=== PATIENT | female | born 1995 | race Caucasian/White ===

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

== ENCOUNTER 2017-03-05 11:03 | Emergency (ER) | payer OTHER ==
[2017-03-05 11:29] VITALS: BP 125/78; TEMP 98.3; BMI 35.3
--- NOTE | 2017-03-05 11:43 | PDOC ---
History of Present Illness - General Chief Complaint: Cold Symptoms Stated Complaint: CHEST PAIN (12 WKS ) Time Seen by Provider: 03/05/17 11:42 History Source: Patient Exam Limitations: No Limitations - History of Present Illness Initial Comments: 03/05/17 12:10 Patient is a 21-year-old female , 12 weeks with no past medical history who presents to the emergency department today complaining of congestion productive cough, sore throat and chest pain for one week. Patient states that she has not taken any medication for her symptoms. She has tried tea with no relief. Patient states that her chest pain is made worse when she takes a deep breath or when she coughs. Admits to intermittent fevers, productive cough with yellow sputum, sore throat, nausea. Patient denies lightheadedness, dizziness, diarrhea, constipation, vaginal bleeding. Past History - Travel Traveled outside of the country in the last 30 days: No Close contact w/someone who was outside of country & ill: No - Past Medical History Allergies/Adverse Reactions: Allergies Allergy/AdvReac Type Severity Reaction Status Date / Time No Known Allergies Allergy Verified 03/05/17 11:26 Home Medications: Ambulatory Orders Acetaminophen [Tylenol] 650 mg PO Q4H #30 tablet 03/05/17 Albuterol Sulfate Inhaler - [Ventolin HFA Inhaler -] 1 - 2 inh PO Q4H #1 inhaler 03/05/17 COPD: No - Reproductive History (#): 1 - Suicide/Smoking/Psychosocial Hx Smoking History: Never smoked Have you smoked in the past 12 months: No Information on smoking cessation initiated: No Hx Alcohol Use: No Drug/Substance Use Hx: No Substance Use Type: None Review of Systems - Review of Systems Able to Perform ROS?: Yes Comments:: 03/05/17 12:04 CONSTITUTIONAL: Present: intermittent fevers Absent: chills, diaphoresis, generalized weakness, malaise, loss of appetite HEENT: Present: rhinorrhea, nasal congestion, throat pain. Absent: throat swelling, difficulty swallowing, mouth swelling, ear pain, eye pain, visual changes CARDIOVASCULAR: Absent: chest pain, loss of consciousness, palpitations, irregular heart rate, peripheral edema RESPIRATORY: Present: productive cough Absent: shortness of breath, dyspnea with exertion, orthopnea, wheezing, stridor, hemoptysis GASTROINTESTINAL: Absent: abdominal pain, abdominal distension, nausea, vomiting, diarrhea, constipation, melena, hematochezia GENITOURINARY: Absent: dysuria, frequency, urgency, hesitancy, hematuria, flank pain, genital pain MUSCULOSKELETAL: Absent: myalgia, arthralgia, joint swelling SKIN: Absent: rash, itching, pallor HEMATOLOGIC/IMMUNOLOGIC: Absent: easy bleeding, easy bruising, lymphadenopathy, frequent infections ENDOCRINE: Absent: unexplained weight gain, unexplained weight loss, heat intolerance, cold intolerance NEUROLOGIC: Absent: headache, focal weakness or paresthesias, dizziness, unsteady gait, seizure, mental status changes, bladder or bowel incontinence PSYCHIATRIC: Absent: anxiety, depression, suicidal or homicidal ideation, hallucinations. Is the patient limited Yoruba proficient: No *Physical Exam - Vital Signs Last Vital Signs Temp Pulse Resp BP Pulse Ox 98.3 F 96 H 18 125/78 100 03/05/17 11:26 03/05/17 11:26 03/05/17 11:26 03/05/17 11:26 03/05/17 11:26 - Physical Exam Comments: 03/05/17 12:06 GENERAL: Well developed, well nourished. Awake and alert, x3. No acute distress, sitting on exam bed. HEENT: Normocephalic, atraumatic. PERRLA, EOMI. No conjunctival pallor. Sclera are non- icteric. Moist mucous membranes. Oropharynx is with mild posterior pharynx erthema. Uvula non-deviated. Tonsils non-swollen. TM's clear b/l with good landmarks and cone of light. NECK: Supple. Full ROM. No JVD. Carotid pulses 2+ and symmetric, without bruits. No thyromegaly. No lymphadenopathy. CARDIOVASCULAR: Regular rate and rhythm. No murmurs, rubs, or gallops. Distal pulses are 2+ and symmetric. PULMONARY: No evidence of respiratory distress. Course lung sounds b/l. No wheezing, rales or rhonchi. ABDOMINAL: Soft. Non-tender. Non-distended. No rebound or guarding. No organomegaly. Normoactive bowel sounds. MUSCULOSKELETAL Normal range of motion at all joints. No bony deformities or tenderness. No CVA tenderness. EXTREMITIES: No cyanosis. No clubbing. No edema. No calf tenderness. SKIN: Warm and dry. Normal capillary refill. No rashes. No jaundice. NEUROLOGICAL: Alert, awake, appropriate. Cranial nerves 2-12 intact. No deficits to light touch and temperature in face, upper extremities and lower extremities. No motor deficits in the in face, upper extremities and lower extremities. Normoreflexic in the upper and lower extremities. Normal speech. Toes are down- going bilaterally. Gait is normal without ataxia. PSYCHIATRIC: Cooperative. Good eye contact. Appropriate mood and affect. Medical Decision Making - Medical Decision Making 03/05/17 12:15 Patient is a 21-year-old female , 12 weeks , no past medical history, presents emergency department for one week of upper respiratory symptoms including intermittent fevers, pleuritic chest pain, productive cough, sore throat, congestion. EKG done in triage so a sinus tachycardia with a rate of 98, normal intervals, normal axis, no acute ST-T wave changes. Chest pain most likely due to her upper respiratory infection, will give Tylenol and albuterol at this time. Reevaluate. 03/05/17 13:06 Patient states that the medication helped only a little bit. Still with cough and congestion. Explained that albuterol and Tylenol were her safe choices in . We will revitalize the patient. 03/05/17 13:55 Repeat VS HR down to 89. Will d/c home at this time with supportive therapy. *DC/Admit/Observation/Transfer Diagnosis at time of Disposition: URI (upper respiratory infection) Qualifiers: URI type: unspecified viral URI Qualified Code(s): J06.9 - Acute upper respiratory infection, unspecified; B97.89 - Other viral agents as the cause of diseases classified elsewhere; B97.89 - Other viral agents as the cause of diseases classified elsewhere - Discharge Dispostion Disposition: HOME Condition at time of disposition: Good Admit: No - Prescriptions Prescriptions: Acetaminophen [Tylenol] 650 mg PO Q4H #30 tablet Albuterol Sulfate Inhaler - [Ventolin HFA Inhaler -] 1 - 2 inh PO Q4H #1 inhaler - Referrals Referrals: Paramjit Patino MD [Staff Physician] - - Patient Instructions Printed Discharge Instructions: DI for Viral Upper Respiratory Infection -- Adult Additional Instructions: You have an upper respiratory infection. You may take Tylenol as needed for pain. You can take up to 4000 mg a day. Please out dosing directions on the bottle. Your also prescribed an albuterol inhaler. Please take this medication to help with her cough and congestion. Please follow-up with her COLLATERAL ANALYST this week. You may use humidified air, warm tea, steamy showers to help with your congestion. Return to the emergency department if you have worsening fevers, worsening cough , shortness of breath, weakness, lightheadedness, or any changes in your symptoms. - Post Discharge Activity Forms/Work/School Notes: Back to Work
[2017-03-05] MEDS ORDERED: ALBUTEROL SO4 2.5/IPRATROPIUM 0.5 INH SOL 3 ML VIAL.NEB. NEB ONE ×2 (12:02→12:12)
[2017-03-05] MEDS ORDERED: ACETAMINOPHEN 325 MG TABLET (FP) PO ONE (12:02)
[2017-03-05] MEDS ORDERED: ACETAMINOPHEN 325 MG TABLET (FP) ONE (12:11)
[2017-03-05 13:55] VITALS: PULSE 90
--- NOTE | 2017-03-07 11:40 | EKG ---
Test Reason : Blood Pressure : / mmHG Vent. Rate : 098 BPM Atrial Rate : 098 BPM P-R Int : 132 ms QRS Dur : 084 ms QT Int : 354 ms P-R-T Axes : 065 054 019 degrees QTc Int : 451 ms NORMAL SINUS RHYTHM CANNOT RULE OUT ANTERIOR INFARCT , AGE UNDETERMINED ABNORMAL ECG NO PREVIOUS ECGS AVAILABLE Confirmed by JUAN JOSE ALAS MD ([id number]) on 03/07/2017 11:40:01 AM Referred By: Confirmed By:JUAN JOSE ALAS MD
== END 2017-03-05 14:05 | disposition home or self-care (01) ==
LOC: JERFT 11:03
PROC: 3E0F7GC Introduction of Other Therapeutic Substance into Respiratory Tract, Via Natural or Artificial Opening (ICD-10-PCS; principal; 2017-03-05)
DX: O36.5910 Maternal care for other known or suspected poor fetal growth, first trimester, not applicable or unspecified (principal); J06.9 Acute upper respiratory infection, unspecified; B97.89 Other viral agents as the cause of diseases classified elsewhere; Z3A.12 12 weeks gestation of pregnancy
CPT/HCPCS: 87070; 87430; 93005; 93010; 94640; 99281-25

== ENCOUNTER 2017-04-06 12:19 | Emergency (ER) | payer OTHER ==
--- NOTE | 2017-04-06 12:45 | PDOC ---
History of Present Illness - General Stated Complaint: VAGINAL BLEEDING (16 WKS ) Time Seen by Provider: 04/06/17 12:44 - History of Present Illness Initial Comments: 04/06/17 12:44 Ms. Stratton is a 22 yo 18 weeks woman who presents complaining of 3 episodes of "light red" vaginal spotting today after an episode of sex with her . She reports this was only on wiping after urinating but concerned her as this was how a prior started. She reports she is currently receiving [facility] ESTATE DEVELOPER care and that her only medication is a vitamin. The patient denies chest pain, shortness of breath, headache and dizziness. Denies fever, chills, nausea, vomit, diarrhea and constipation. Denies dysuria, frequency, urgency and hematuria. Allergies: NKDA Past History - Past Medical History Allergies/Adverse Reactions: Allergies Allergy/AdvReac Type Severity Reaction Status Date / Time No Known Allergies Allergy Verified 03/05/17 11:26 Home Medications: Ambulatory Orders Acetaminophen [Tylenol] 650 mg PO Q4H #30 tablet 03/05/17 Albuterol Sulfate Inhaler - [Ventolin HFA Inhaler -] 1 - 2 inh PO Q4H #1 inhaler 03/05/17 COPD: No - Reproductive History (#): 1 - Suicide/Smoking/Psychosocial Hx Smoking History: Never smoked Have you smoked in the past 12 months: No Hx Alcohol Use: No Drug/Substance Use Hx: No Substance Use Type: None Review of Systems - Review of Systems Comments:: 04/06/17 12:44 GENERAL/CONSTITUTIONAL: No fever or chills. No weakness. HEAD, EYES, EARS, NOSE AND THROAT: No change in vision. No ear pain or discharge. No sore throat. CARDIOVASCULAR: No chest pain or shortness of breath RESPIRATORY: No cough, wheezing, or hemoptysis. GASTROINTESTINAL: No nausea, vomiting, diarrhea or constipation. GENITOURINARY: +Spotting as described above. No dysuria, frequency, or change in urination. MUSCULOSKELETAL: No joint or muscle swelling or pain. No neck or back pain. SKIN: No rash NEUROLOGIC: No headache, vertigo, loss of consciousness, or change in strength/ sensation. ENDOCRINE: No increased thirst. No abnormal weight change HEMATOLOGIC/LYMPHATIC: No anemia, easy bleeding, or history of blood clots. ALLERGIC/IMMUNOLOGIC: No hives or skin allergy. *Physical Exam - Physical Exam Comments: 04/06/17 12:45 GENERAL: Awake, alert, and fully oriented, in no acute distress HEAD: No signs of trauma, normocephalic, atraumatic EYES: PERRLA, EOMI, sclera anicteric, conjunctiva clear ENT: Auricles normal inspection, hearing grossly normal, nares patent, oropharynx clear without exudates. Moist mucosa NECK: Normal ROM, supple, no lymphadenopathy, JVD, or masses LUNGS: No distress, speaks full sentences, clear to auscultation bilaterally HEART: Regular rate and rhythm, normal S1 and S2, no murmurs, rubs or gallops, peripheral pulses normal and equal bilaterally. ABDOMEN: Soft, nontender, normoactive bowel sounds. No guarding, no rebound. No masses EXTREMITIES: Normal inspection, Normal range of motion, no edema. No clubbing or cyanosis. NEUROLOGICAL: Cranial nerves II through XII grossly intact. Normal speech, normal gait, no focal sensorimotor deficits SKIN: Warm, Dry, normal turgor, no rashes or lesions noted. : +White thick exudate noted in vaginal vault. Cervix closed, no CMT, small right adnexal tenderness. No masses. Medical Decision Making - Medical Decision Making 04/06/17 17:34 Ms. Stratton is a 22 yo female w/ no pmh presenting for spotting after sex earlier today. No blood noted on vaginal exam, OS closed, yeast infection seen. Diflucan given for treatment. Patient currently pending type and screen. 04/06/17 18:04 Patient's type and screen returned AB+; patient does not need rhogam and will d/ c with instructions to f/u with [facility]ELOPER outpatient later this week. *DC/Admit/Observation/Transfer Diagnosis at time of Disposition: Vaginal bleeding in - Discharge Dispostion Disposition: HOME - Referrals Referrals: Trav Epps [Primary Care Provider] - - Patient Instructions Printed Discharge Instructions: DI for Vaginal Bleeding During Additional Instructions: Please follow-up with your REAL ESTATE DEVELOPER later this week for further evaluation. Return if any increase/return of bleeding, pain, or other concerning symptoms. - Post Discharge Activity
[2017-04-06 12:53] VITALS: BMI 34.4
[2017-04-06] MEDS ORDERED: FLUCONAZOLE 50 MG TABLET PO ONE (14:00)
[2017-04-06 15:05] LABS: URINE APPEARANCE CLEAR; URINE BILIRUBIN NEGATIVE (NEGATIVE); URINE BLOOD NEGATIVE (NEGATIVE); URINE COLOR YELLOW; URINE GLUCOSE (UA) NEGATIVE (NEGATIVE); URINE KETONE 1+ (NEGATIVE); URINE LEUK ESTERASE NEGATIVE (NEGATIVE); URINE NITRITE NEGATIVE (NEGATIVE); URINE PROTEIN NEGATIVE (NEGATIVE); URINE UROBILINOGEN NEGATIVE mg/dL (0.2-1.0)
--- NOTE | 2017-04-06 15:06 | PDOC ---
Attending Attestation - HPI HPI: 04/06/17 15:06 The patient is a 22 year old approximately 18 week female (), with no significant past medical history, who presents to the emergency department complaining of vaginal spotting since today s/p sexual intercourse. Patient reports wiping 3 times over the past hour, where she noted light red blood on the tissue. Patient reports coming to the ED out of concern, because during her previous miscarriage(at 2 months) she had similar symptoms. She denies any abdominal pain, nausea, vomiting, diarrhea, or constipation. She denies any dysuria, hematuria, frequency, or urgency. Patient has had OB follow-up and an IUP was seen. Patient is on vitamins. She denies any fever, chills, headache, or dizziness. Allergies: NKDA PCP: Dr. Epps - Physicial Exam PE: 04/06/17 15:06 Vitals: Triage Vital signs reviewed General Appearance: no acute distress, well nourished well developed, Head: Atraumatic, normocephalic Cardiac: Regular rate and rhythm, no murmurs, no rubs, no gallops, Lungs: Clear to auscultation bilateral, good air movement bilaterally, Abdomen: Soft, nondistended, normal bowel sounds, nontender to palpation Pelvic: See resident note Extremities: Full range of motion to all extremities, no cyanosis, clubbing, or edema Skin: Warm and dry, no rashes or lesions, no petechiae Neuro: AOX3; Cranial Nerves 2-12 grossly intact, Strength intact to all extremities, Sensation intact to all extremities Psych: normal mood, normal affect - Medical Decision Making 04/06/17 15:06 Documentation prepared by Muna Price, acting as medical sociologist for Jared Bailey MD. <Muna Price - Last Filed: 04/06/17 15:37> - Resident Resident Name: Edmond Mcelroy - ED Attending Attestation I have performed the following: I have examined & evaluated the patient, The case was reviewed & discussed with the resident, I agree w/resident's findings & plan, Exceptions are as noted - Medical Decision Making 18 weeks with very scant episode of vaginal spotting. Type and screen pending bedside abdominal ultrasound demonstrates good activity If Rh+ and urinalysis negative patient can be discharged with [employer] OF MARKET [employer]NALYSIS follow-up Findings, the need for follow-up, strict return instructions discussed with patient. <Jared Bailey - Last Filed: 04/06/17 17:02>
[2017-04-06] MEDS ORDERED: FLUCONAZOLE 100 MG TABLET (UD) ONE (15:55)
[2017-04-06 20:09] VITALS: BP 128/78; PULSE 85; TEMP 98.1
== END 2017-04-06 18:44 | disposition home or self-care (01) ==
LOC: JER 12:19
DX: O26.892 Other specified pregnancy related conditions, second trimester (principal); O46.92 Antepartum hemorrhage, unspecified, second trimester; Z3A.18 18 weeks gestation of pregnancy
CPT/HCPCS: 81003; 86850; 86900; 86901; 99282-25

== ENCOUNTER 2017-05-12 13:04 | Emergency (ER) | payer OTHER ==
[2017-05-12 13:21] VITALS: TEMP 98.7; BMI 35.9
--- NOTE | 2017-05-12 13:30 | PDOC ---
History of Present Illness - General Chief Complaint: Chest Pain Stated Complaint: CHEST PAIN (24 WKS ) Time Seen by Provider: 05/12/17 13:30 - History of Present Illness Initial Comments: 22 year old female [id number] ([facility] 6 months [facility] presenting for dry cough, nasal congestion, myalgias, and one episode of subjective warmth starting 2-3 days ago. This all started with some nasal congestion early or Saturday morning which evolved into a dry cough and eventually some muscle aches with an episode of subjective fever earlier today. Her sister was ill with similar symptoms and found to be flu positive. She has had a relatively normal til date this date (with the exception of some minor vaginal bleeding last month in the setting of a yeast infection that has since been teated), is on vitamins, and is followed at the [facility]. She did have a respiratory illness 2 months prior for which she was seen here and given a short course of nebulizer treatments.Denies any Nausea, vomiting, diarrhea, constipation, chest pain, or SOB. 05/12/17 13:35 Past History - Past Medical History Allergies/Adverse Reactions: Allergies Allergy/AdvReac Type Severity Reaction Status Date / Time No Known Allergies Allergy Verified 05/12/17 13:17 Home Medications: Ambulatory Orders Acetaminophen [Tylenol] 650 mg PO Q4H #30 tablet 03/05/17 Oseltamivir Phosphate [Tamiflu] 75 mg PO BID #9 capsule 05/12/17 COPD: No - Reproductive History (#): 1 - Suicide/Smoking/Psychosocial Hx Smoking History: Never smoked Have you smoked in the past 12 months: No Hx Alcohol Use: No Drug/Substance Use Hx: No Substance Use Type: None Review of Systems - Review of Systems Constitutional: Yes: Chills, Fever. No: Loss of Appetite, Weakness HEENTM: No: Blurred Vision, Tearing Respiratory: Yes: Cough. No: Orthopnea, SOB with Exertion Cardiac (ROS): No: Chest Pain, Irregular Heart Rate, Lightheadedness, Chest Tightness ABD/GI: No: Constipated, Nausea, Vomiting : No: Burning, Dysuria, Discharge Integumentary: Yes: Dryness. No: Erythema, Lesions Neurological: No: Headache, Numbness, Paresthesia *Physical Exam - Vital Signs Last Vital Signs Temp Pulse Resp BP Pulse Ox 98.7 F 99 H 17 134/70 97 05/12/17 13:17 05/12/17 13:17 05/12/17 13:17 05/12/17 13:17 05/12/17 13:17 - Physical Exam General Appearance: Yes: Nourished, Appropriately Dressed. No: Apparent Distress HEENT: positive: EOMI, MASHA, Normal Voice. negative: Normal ENT Inspection ( Nasal congestion. Mo sinus tenderness or dullness.) Neck: positive: Trachea midline, Normal Thyroid, Supple. negative: Tender, Rigid Respiratory/Chest: positive: Lungs Clear, Normal Breath Sounds. negative: Chest Tender, Respiratory Distress, Accessory Muscle Use Cardiovascular: positive: Regular Rhythm, Regular Rate Gastrointestinal/Abdominal: positive: Normal Bowel Sounds, Soft, Protuberent. negative: Tender, Flat Musculoskeletal: positive: Normal Inspection Extremity: positive: Normal Capillary Refill, Normal Inspection, Normal Range of Motion. negative: Tender Integumentary: positive: Normal Color, Dry, Warm Neurologic: positive: Fully Oriented, Alert, Normal Mood/Affect, Motor Strength 5/5 Medical Decision Making - Medical Decision Making 22 year old female 6 months and very well appearing with the exception of some nasal congestion, myalgias, and subjective warmth in the setting of recent flu positive sick contact. She actually would have stayed home but didn not know what medications were safe to take for her symptoms in the setting of her . She likely has the flu. She feels better after Tylenol 650 PO and Tamiflu 75 MG once. Of note, her HR is slightly elevated but has been elevated for the past few readings here, which is consistent with a HR of a normal 6 month female. Will send home with Tylenol use instructions, tamiflu prescription (high suspicion for flu with places this patient in a high risk category although she is slightly outside the 48 hour recommendation). 05/12/17 13:54 *DC/Admit/Observation/Transfer Diagnosis at time of Disposition: Influenza - Discharge Dispostion Disposition: HOME Condition at time of disposition: Improved Admit: No - Prescriptions Prescriptions: Oseltamivir Phosphate [Tamiflu] 75 mg PO BID #9 capsule - Referrals Referrals: [facility] [Other] - Patient Instructions Printed Discharge Instructions: DI for Influenza -- Adult Additional Instructions: You likely have the flu, please use Tylenol for your fever and body aches. Please use Tamiflu once tonight and twice a day for the next 4 days. Please wear a mask around your young child at home for next week to prevent infectivity. Please wash your hands frequently, and make sure not to cough on the food, common contact points, or near other members of your home. Please follow up with your obygyn at the [facility] if you have any additional questions and please return to the ED if you get worse (i.e. have new fevers, chills, nause,a vomiting, worse body aches) or don't get better within the next few days. - Post Discharge Activity
[2017-05-12] MEDS ORDERED: ACETAMINOPHEN 325 MG TABLET (FP) PO ONE (13:35)
[2017-05-12] MEDS ORDERED: ACETAMINOPHEN 325 MG TABLET (FP) ONE (13:50)
[2017-05-12] MEDS ORDERED: OSELTAMIVIR PHOSPHATE 75 MG CAPSULE PO ONE (13:53)
[2017-05-12] MEDS ORDERED: OSELTAMIVIR PHOSPHATE 75 MG CAPSULE ONE (13:59)
--- NOTE | 2017-05-12 14:26 | PDOC ---
Attending Attestation - Resident Resident Name: Terrence Dotson - ED Attending Attestation I have performed the following: I have examined & evaluated the patient, The case was reviewed & discussed with the resident, I agree w/resident's findings & plan, Exceptions are as noted - HPI HPI: 05/12/17 14:24 This patient is a 22 year old female (currently 6 months ) with no PMH presents to the Emergency Department today with with flu like symptoms for 3 -4 days. That patient states that her symptoms began or Saturday. She endorses chest congestion, joint pain and general myalgias, dry cough and subjective fever. She reports sick contact with her sister, who tested positive for influenza. She denies vomiting, diarrhea, nausea, and chest pain. Pt denies recent travel. Denies WARD/neck pain. Patient follows with an outpatient womens clinic. - Physicial Exam PE: 05/12/17 14:25 "GENERAL: Awake, alert, and fully oriented, in no acute distress HEAD: No signs of trauma EYES: PERRLA, EOMI, sclera anicteric, conjunctiva clear ENT: Auricles normal inspection, hearing grossly normal, nares patent, oropharynx clear without exudates. Moist mucosa NECK: Nontender, no stepoffs, Normal ROM, supple, no lymphadenopathy, JVD, or masses LUNGS: Breath sounds equal, clear to auscultation bilaterally. No wheezes, and no crackles HEART: Regular rate and rhythm, normal S1 and S2, no murmurs, rubs or gallops ABDOMEN: Gravid, Soft, nontender, normoactive bowel sounds. No guarding, no rebound. No masses EXTREMITIES: Normal range of motion, no edema. No clubbing or cyanosis. No cords, erythema, or tenderness NEUROLOGICAL: Cranial nerves II through XII intact. 5/5 strength and sensation in all extremities, Normal speech, normal gait SKIN: Warm, Dry, normal turgor, no rashes or lesions noted. " - Medical Decision Making 05/12/17 14:25 22 F @ 6 months presenting with influenza like illness x 3 days, with known sick contact that was flu +. Pt well appearing with normal vitals. Given , will empirically tx with tamiflu. - Tamiflu - Supportive care - F/u PMD Pt is well appearing, with normal vitals. Clinically stable for DC at this time. I discussed the physical exam findings, ancillary test results and final diagnoses with the patient. I answered all of the patient's questions. The patient was satisfied with the care received and felt comfortable with the discharge plan and treatment plan. The patient agrees to follow up with the primary care physician within 24-72 hours.
[2017-05-12 14:32] VITALS: BP 144/63; PULSE 88
--- NOTE | 2017-05-13 23:28 | EKG ---
Test Reason : Blood Pressure : / mmHG Vent. Rate : 099 BPM Atrial Rate : 099 BPM P-R Int : 130 ms QRS Dur : 086 ms QT Int : 360 ms P-R-T Axes : 061 046 018 degrees QTc Int : 462 ms NORMAL SINUS RHYTHM POSSIBLE LEFT ATRIAL ENLARGEMENT RSR' OR QR PATTERN IN V1 SUGGESTS RIGHT VENTRICULAR CONDUCTION DELAY ABNORMAL ECG WHEN COMPARED WITH ECG OF 05-MAR-2017 11:09, NO SIGNIFICANT CHANGE WAS FOUND Confirmed by GRIFFIN PAIGE MD ([id number]) on 05/13/2017 11:28:21 PM Referred By: Confirmed By:GRIFFIN PAIGE MD
== END 2017-05-12 14:32 | disposition home or self-care (01) ==
LOC: JER 13:04
DX: O26.892 Other specified pregnancy related conditions, second trimester (principal); O98.512 Other viral diseases complicating pregnancy, second trimester; J11.1 Influenza due to unidentified influenza virus with other respiratory manifestations; Z3A.24 24 weeks gestation of pregnancy
CPT/HCPCS: 93005; 93010; 99282-25